=== PATIENT | male | born 1995 | race Two or more races ===

== ENCOUNTER 2017-04-18 19:56 | Emergency (ER) | payer MEDICAID ==
[~2017-04-18] VITALS: Ht 167.6 cm; Wt 79.4 kg
[2017-04-18 22:00] VITALS: BP 125/83
[2017-04-19] MEDS ORDERED: IBUPROFEN 600 MG TAB PO ONE (02:00)
[2017-04-19] MEDS ORDERED: PROMETHAZINE W/CODEINE 5 ML ORAL SYRUP PO ONE (02:00)
== END 2017-04-19 01:48 | disposition home or self-care (01) ==
LOC: ER 20:05
DX: J02.9 Acute pharyngitis, unspecified (principal)

== ENCOUNTER 2017-10-25 17:03 | Emergency (ER) | payer MEDICAID ==
[~2017-10-25] VITALS: Ht 165.1 cm; Wt 80.7 kg
[2017-10-25 17:24] VITALS: BP 138/90
== END 2017-10-25 23:12 | disposition home or self-care (01) ==
LOC: ER 17:08
DX: S80.861A Insect bite (nonvenomous), right lower leg, initial encounter (principal); L03.115 Cellulitis of right lower limb; W57.XXXA Bitten or stung by nonvenomous insect and other nonvenomous arthropods, initial encounter; Y93.89 Activity, other specified; Y92.89 Other specified places as the place of occurrence of the external cause; Y99.8 Other external cause status

== ENCOUNTER 2017-12-16 17:21 | Emergency (ER) | payer MEDICAID ==
[~2017-12-16] VITALS: Ht 165.1 cm; Wt 81.2 kg
[2017-12-16 17:38] VITALS: BP 133/83
== END 2017-12-16 23:59 | disposition left against medical advice (07) ==
LOC: ER 17:27
DX: R22.2 Localized swelling, mass and lump, trunk (principal); Z53.21 Procedure and treatment not carried out due to patient leaving prior to being seen by health care provider